=== PATIENT | female | born 1960 | race African-American/Black ===

== ENCOUNTER 2018-03-26 18:37 | Observation (INO) ==
[2018-03-26] MEDS ORDERED: 0.9 % Sodium Chloride 1,000 ML IVC ONE ×2 (18:53→23:08)
--- NOTE | 2018-03-26 19:21 | Emergency Department Note ---
Disposition Clinical Impression: Ductal carcinoma in situ of right breast, Hypertension, Hyperlipidemia, Diabetes mellitus type II, controlled, Tachycardia, Non-cardiac chest pain, Pleural effusion, Pericardial effusion Disposition: Admitted As Inpatient SOB HPI - General Chief Complaint: ED Shortness of Breath/Dyspnea Stated Complaint: VICTOR M Time Seen by Provider: 03/26/18 18:43 Source: patient Mode of arrival: ambulatory Nursing Notes Reviewed: Yes Vital Signs Reviewed: Yes - History of Present Illness 57-year-old female with past medical history of DCIS of right breast, hypertension, hyperlipidemia, Crohn's disease, GERD presents to emergency department for chest pain of approximately one week duration. She tells me this started off as mild pain under her right breast but over the past 2 days the pain has become sharp, more severe (8/10), and without radiation. She also has some chest heaviness and shortness of breath. She took 400 mg of ibuprofen that did not relieve the pain. She denies recent illnesses or fever/chills. She denies any significant trauma. Patient is currently undergoing radiation treatment for her DCIS of the right breast she had a lumpectomy in November and started radiation in February with her last treatment 3 days ago. Her radiation oncologist Dr. Carmona ordered a CTA earlier today that was negative for pulmonary embolism but showed small pleural effusion as well as a small pericardial effusion. - Related Data Home Medications Medication Instructions Recorded Confirmed Amlodipine Besylate 10 mg PO DAILY 12/03/17 03/26/18 Atorvastatin [Lipitor] 40 mg PO HS 12/03/17 03/26/18 Azathioprine [Imuran] 50 mg PO TID 12/03/17 03/26/18 Azelastine 0.1% Nasal [place] 1 % IN BID 12/03/17 03/26/18 [Astelin] Colestipol HCl [Colestid] 1 gm PO DAILY 12/03/17 03/26/18 Cyclosporine [Restasis] 1 each OP BID 12/03/17 03/26/18 Desloratadine [Clarinex] 5 mg PO DAILY 12/03/17 03/26/18 Escitalopram Oxalate 5 mg PO DAILY 12/03/17 03/26/18 Lisinopril [Zestril] 5 mg PO DAILY 12/03/17 03/26/18 Metformin HCl [Metformin HCl ER] 1,000 mg PO BID 12/03/17 03/26/18 Multivit-Min/Iron/Folic/Lutein 1 each PO DAILY 12/03/17 03/26/18 [Centrum Silver Women Tablet] [place]-3S/Dha/Epa/Fish Oil [Fish 1 each PO DAILY 12/03/17 03/26/18 Oil 1,200 mg Softgel] SitaGLIPtin [Januvia] 100 mg PO DAILY 12/03/17 03/26/18 Vit A/Vit C/Vit E/Zinc/Copper 1 each PO DAILY 12/03/17 03/26/18 [Preservision Areds Tablet] Multivits Min/Iron/FA/Herb#186 1 tab PO DAILY 12/17/17 03/26/18 [Hair, Skin and Nails Caplet] Omeprazole [PriLOSEC] 20 mg PO DAILY 03/26/18 03/26/18 Previous Rx's Medication Instructions Recorded Vitamin E (Dl,Tocopheryl Acet) 400 unit PO DAILY #30 cap 11/28/17 [Vitamin E] Allergies Allergy/AdvReac Type Severity Reaction Status Date / Time Amoxicillin Allergy Itching Verified 01/21/18 13:41 aspirin Allergy Itching Verified 01/21/18 13:41 Constitutional: Denies: fever, chills, weakness, weight change Eyes: Denies: eye pain, eye discharge, vision change ENT ED: Denies: ear pain, throat pain, dental pain, hearing loss, epistaxis, congestion, dysphagia Cardiovascular: Reports: chest pain. Denies: palpitations, edema, syncope Respiratory: Reports: dyspnea. Denies: cough, wheezes, hemoptysis, stridor, sputum production Gastrointestinal: Reports: diarrhea (Chronic due to Crohn's). Denies: abdominal pain, nausea, vomiting, constipation, hematemesis, melena, hematochezia Genitourinary: Denies: dysuria, frequency, hematuria, discharge Integumentary: Denies: rash, abrasion, lesions Neurological: Reports: headache (1-2/10 mild headache similar to prior headaches ). Denies: weakness, numbness, paresthesias, confusion, abnormal gait, vertigo Past Medical History - Past Medical History Psychiatric history: Reports: no psych history - Social History Smoking Status: Never smoker Smokeless Tobacco Status: No Alcohol use: Reports: none Drug use: Reports: none Physical Exam - General Limitations: no limitations General appearance: alert, in no apparent distress - Head Head exam: atraumatic, normocephalic, normal inspection - Eye Eye exam: Present: normal appearance, PERRL, EOMI - ENT ENT exam: normal exam, normal oropharynx, mucous membranes moist - Neck Neck exam: Present: normal inspection, full ROM, trachea midline - Chest Chest inspection: Present: normal inspection, symmetric chest wall rise, tenderness (Reproducible pain on palpation of right anterior chest) - Respiratory Respiratory exam: Present: normal lung sounds bilaterally - Cardiovascular Cardiovascular exam: Present: normal rhythm, tachycardia, normal heart sounds - Abdominal Exam Abdominal exam: Present: soft, Non-Tender. Absent: tenderness, distention, guarding, rebound, rigidity - Extremities Exam Extremities exam: Present: normal inspection. Absent: tenderness, pedal edema - Neurological Exam Neurological exam: Present: alert, oriented X3 Course Course Narrative: Patient was seen and evaluated at bedside. She is in no acute distress Vital Signs Temperature 98.9 F 03/26/18 18:38 Pulse Rate 138 03/26/18 18:38 Respiratory Rate 22 03/26/18 18:38 Blood Pressure 142/88 03/26/18 18:38 O2 Sat by Pulse Oximetry 96 03/26/18 18:38 Temperature 98.9 F 03/26/18 18:38 Pulse Rate 114 03/26/18 20:05 Respiratory Rate 22 03/26/18 20:05 Blood Pressure 157/87 03/26/18 20:05 O2 Sat by Pulse Oximetry 98 03/26/18 20:05 Oxygen Delivery Oxygen Delivery Room Air Shortness of Breath/Dyspnea - [facility] Narrative Medical decision making narrative: Patient's right-sided chest pain is reproducible and initial EKG showed no acute changes, however; given her tachycardia, shortness of breath, age, and current treatment for breast cancer we will obtain cardiac workup. Her radiation oncologist has already ordered CTA that was nonacute . Hemoglobin is normal. Dr. Augustin: I personally evaluated the patient and spent direct [id number] time with the patient and agree with the resident H&P findings assessment and plan. The patient has a history of breast cancer currently undergoing chemotherapy, she had an outpatient CT chest today which revealed what appeared to be pericardial fluid and pleural effusions with a potential inflammatory or infectious locus. No PE identified. The patient presents emergency department describing pleuritic chest pain associated with position. There is no evidence of acute ischemia on EKG troponin negative laboratory studies unremarkable apart from anemia. The patient remained tachycardic in the emergency department. Blood cultures are sent, lactic acid negative, IV fluid given. She declined need for pain medication. Antibiotic therapy initiated. Based on the patient's age, comorbidities including hypertension hyperlipidemia diabetes breast cancer and findings suggestive of potential pericarditis and or pneumonitis with pleural effusions and persistent tachycardia and chest pain, I thought it would be appropriate to admit the patient to the hospital for further evaluation. The patient is highly agreeable. I reviewed the case with the hospitalist on-call who has accepted the patient to their care. The patient is currently stable pending admission. - Lab Data Lab results reviewed: Yes I reviewed the patient's lab results. Result diagrams: 03/26/18 18:46 03/26/18 18:46 Lab Results 03/26/18 03/26/18 03/26/18 Range/Units 18:46 18:46 18:46 WBC 9.1 (4.3-11.1) K/mcL RBC 4.09 (3.82-4.97) M/mcL Hgb 11.2 L (11.5-15.4) g/dL Hct 34.1 L (35.3-44.9) % MCV 83.4 (83.0-100.0) fL MCH 27.4 L (28.0-33.3) pg MCHC 32.8 (31.6-35.5) g/dL RDW 14.1 (11.5-14.5) % Plt Count 255 (140-400) K/mcL MPV 11.0 (9.4-12.4) fL Immature Gran % 0.2 (0-4) % Seg Neutrophils % 79.1 % Lymphocytes % 9.3 % Monocytes % 10.3 % Eosinophils % 0.8 % Basophils % 0.3 % Neutrophils # 7.2 (1.6-8.9) K/mcL Lymphocytes # 0.8 (0.6-4.6) K/mcL Monocytes # 0.9 (0.0-1.3) K/mcL Eosinophils # 0.1 (0.0-0.6) K/mcL Basophils # 0.0 (0.0-0.2) K/mcL PT (9.4-12.1) Seconds INR APTT (26.0-36.0) Seconds Sodium 138 (136-145) mEq/L Potassium 4.1 (3.5-5.1) mEq/L Chloride 103 (98-107) mEq/L Carbon Dioxide 26 (23-29) mEq/L BUN 19 (6-20) mg/dL Creatinine 0.85 (0.60-1.20) mg/dL Est GFR ( Amer) > 60 (> 60) Est GFR (Non-Af Amer) > 60 (> 60) BUN/Creatinine Ratio 22 (6-26) Glucose 198 H (70-105) mg/dL Calculated Osmolality 294 (280-300) Lactic Acid (0.5-2.2) mmol/L Calcium 9.3 (8.6-10.3) mg/dL Total Bilirubin 0.6 (0.3-1.0) mg/dL Direct Bilirubin 0.3 H (0.0-0.2) mg/dL Indirect Bilirubin 0.3 (0.0-1.2) mg/dL AST 15 (13-39) Units/L ALT 12 (7-52) Units/L Alkaline Phosphatase 60 (34-104) Units/L Troponin I < 0.03 (< 0.04) ng/mL B-Natriuretic Peptide 26 (Less than 100) pg/mL Serum Total Protein 7.4 (6.4-8.9) g/dL Albumin 4.0 (3.5-5.7) g/dL Globulin 3.4 (2.4-3.5) g/dL Albumin/Globulin Ratio 1.2 (1.1-2.2) TSH 1.686 (0.340-5.600) mcIU/mL Free T4 1.08 (0.70-2.00) ng/dl 03/26/18 03/26/18 Range/Units 18:47 19:00 WBC (4.3-11.1) K/mcL RBC (3.82-4.97) M/mcL Hgb (11.5-15.4) g/dL Hct (35.3-44.9) % MCV (83.0-100.0) fL MCH (28.0-33.3) pg MCHC (31.6-35.5) g/dL RDW (11.5-14.5) % Plt Count (140-400) K/mcL MPV (9.4-12.4) fL Immature Gran % (0-4) % Seg Neutrophils % % Lymphocytes % % Monocytes % % Eosinophils % % Basophils % % Neutrophils # (1.6-8.9) K/mcL Lymphocytes # (0.6-4.6) K/mcL Monocytes # (0.0-1.3) K/mcL Eosinophils # (0.0-0.6) K/mcL Basophils # (0.0-0.2) K/mcL PT 10.7 (9.4-12.1) Seconds INR 1.0 APTT 31.6 (26.0-36.0) Seconds Sodium (136-145) mEq/L Potassium (3.5-5.1) mEq/L Chloride (98-107) mEq/L Carbon Dioxide (23-29) mEq/L BUN (6-20) mg/dL Creatinine (0.60-1.20) mg/dL Est GFR ( Amer) (> 60) Est GFR (Non-Af Amer) (> 60) BUN/Creatinine Ratio (6-26) Glucose (70-105) mg/dL Calculated Osmolality (280-300) Lactic Acid 1.9 (0.5-2.2) mmol/L Calcium (8.6-10.3) mg/dL Total Bilirubin (0.3-1.0) mg/dL Direct Bilirubin (0.0-0.2) mg/dL Indirect Bilirubin (0.0-1.2) mg/dL AST (13-39) Units/L ALT (7-52) Units/L Alkaline Phosphatase (34-104) Units/L Troponin I (< 0.04) ng/mL B-Natriuretic Peptide (Less than 100) pg/mL Serum Total Protein (6.4-8.9) g/dL Albumin (3.5-5.7) g/dL Globulin (2.4-3.5) g/dL Albumin/Globulin Ratio (1.1-2.2) TSH (0.340-5.600) mcIU/mL Free T4 (0.70-2.00) ng/dl - Radiology Data Radiology results reviewed: Yes I reviewed the patient's radiology results. - EKG Data EKG attestation: Yes I reviewed and interpreted this EKG. EKG results narrative: Sinus tachycardia. Ventricular rate 132 bpm, SD interval 140 ms, QRS duration 72 ms, QT 332 ms, QTC 410 ms, normal axes, no ST elevation or depression, no T- wave abnormalities
[2018-03-26 19:40] LABS: Basophils % 0.3 %; Eosinophils # 0.1 K/mcL (0.0-0.6); Eosinophils % 0.8 %; Hematocrit 34.1 % (35.3-44.9); Hemoglobin 11.2 g/dL (11.5-15.4); Immature Granulocytes % 0.2 % (0-4); Lymphocytes # 0.8 K/mcL (0.6-4.6); Lymphocytes % 9.3 %; Mean Corpuscular HGB Conc 32.8 g/dL (31.6-35.5); Mean Corpuscular Hemoglobin 27.4 pg (28.0-33.3); Mean Corpuscular Volume 83.4 fL (83.0-100.0); Monocytes # 0.9 K/mcL (0.0-1.3); Monocytes % 10.3 %; Neutrophils # 7.2 K/mcL (1.6-8.9); Platelet Count 255 K/mcL (140-400); Red Blood Count 4.09 M/mcL (3.82-4.97); Red Cell Distribution Width 14.1 % (11.5-14.5); Segmented Neutrophils % 79.1 %
[2018-03-26 19:41] LABS: Troponin I < 0.03 ng/mL (< 0.04)
[2018-03-26 19:46] LABS: Prothrombin Time 10.7 Seconds (9.4-12.1)
[2018-03-26 19:48] LABS: Activated Partial Thrombo Time 31.6 Seconds (26.0-36.0)
[2018-03-26 19:59] LABS: Alanine Aminotransferase 12 Units/L (7-52); Albumin/Globulin Ratio 1.2 (1.1-2.2); Alkaline Phosphatase 60 Units/L (34-104); Aspartate Amino Transferase 15 Units/L (13-39); BUN/Creatinine Ratio 22 (6-26); Bilirubin,Direct 0.3 mg/dL (0.0-0.2); Bilirubin,Indirect 0.3 mg/dL (0.0-1.2); Bilirubin,Total 0.6 mg/dL (0.3-1.0); Blood Urea Nitrogen 19 mg/dL (6-20); Calcium 9.3 mg/dL (8.6-10.3); Carbon Dioxide 26 mEq/L (23-29); Chloride 103 mEq/L (98-107); Globulin 3.4 g/dL (2.4-3.5); Glucose 198 mg/dL (70-105); Osmolality,Calculated 294 (280-300); Potassium 4.1 mEq/L (3.5-5.1); Sodium 138 mEq/L (136-145); Thyroid Stimulating Hormone 1.686 mcIU/mL (0.340-5.600); Total Protein 7.4 g/dL (6.4-8.9); eGFR For African Americans > 60 (> 60); eGFR For Non-African Americans > 60 (> 60)
[2018-03-26] MEDS ORDERED: Levofloxacin 750 MG/150 ML 750 MG/150 ML BAG IVPB ONE (20:21)
[2018-03-26] MEDS ORDERED: *HR* HYDROcodone/Acet 5/325 mg TABLET PO PRN (22:20)
[2018-03-26] MEDS ORDERED: Naloxone 0.4 MG/ML INJ IVP PRN (22:20)
[2018-03-26] MEDS ORDERED: Dextrose Gel 15 GM/37.5 ML TUBE PO PRN ×2 (22:42)
[2018-03-26] MEDS ORDERED: D5% in Water 1,000 ML IVC PRN (22:42)
[2018-03-26] MEDS ORDERED: *HR* Dextrose 50 % in Water (Syg) 50 ML SYRINGE IVP PRN (22:42)
[2018-03-26] MEDS ORDERED: Insulin DETEMIR 100 UNIT/ML X5UNITS SQ SCH (22:45)
--- NOTE | 2018-03-26 23:16 | Internal Med History&Physical ---
Date of Encounter: 03/26/18 Time of Encounter: 21:30 Internal Medicine - H&P: HPI Chief complaint: SOB, tachycardia Admitted From: Home Plans for Post Hospital Care: Home History of present illness: Ms. Houston is a 57 year old female Patient presented to the ER for shortness of breath for the past few days. She also has been having some chest pressure as well for the last week. She noted it getting worse and worse over the last couple days, particularly with exertion such as when she goes up and down the stairs while doing laundry at home. She never had symptoms like this before. The chest pressure is worse with inhalation. She denies nausea and vomiting, cough, abdominal pain and lower extremity edema. She has had decreased appetite and had a temperature at home of 100 degrees. 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 She has a history of right-sided ductal carcinoma in situ of the right breast, for which she is receiving radiation, her last radiation was 3 days ago. She only has 2 more treatments before she completes her regimen. Her oncologist ordered a CT Angio for her based on her symptoms worried for possible pulmonary embolism , CT angios showed no PE but did show small right pleural effusion, as well as focal right basilar opacity. Infectious or inflammatory process could not be ruled out. There is also trace pericardial effusion, but patient states she has known about this for over 20 years and this is not a new finding. In the emergency room patient received IV fluids and an EKG which showed sinus tachycardia with no T-wave abnormalities. Patient's troponins were negative 1. She was started on Levaquin prior to blood cultures being drawn for possible pneumonia. She will be admitted for management of her tachycardia and shortness of breath as well as her possible pneumonia. Currently she is feeling a little better. Past Med Surg Social Fam HX - Past Medical History Additional medical history: stomach problems. Crohns Dx. Anemia. right breast DCIS Grade 2. Colon Cancer Psychiatric history: no psych history - Social History Smoking Status: Never smoker Smokeless Tobacco Status: No Alcohol use: none Drug use: none Internal Medicine - H&P: Meds Vitamin E (Dl,Tocopheryl Acet) [Vitamin E] 400 unit PO DAILY #30 cap 11/28/17 [ Rx] Amlodipine Besylate 10 mg PO DAILY 12/03/17 [History] Atorvastatin [Lipitor] 40 mg PO HS 12/03/17 [History] Azathioprine [Imuran] 50 mg PO TID 12/03/17 [History] Azelastine 0.1% Nasal [place] [Astelin] 1 % IN BID 12/03/17 [History] Colestipol HCl [Colestid] 1 gm PO DAILY 12/03/17 [History] Cyclosporine [Restasis] 1 each OP BID 12/03/17 [History] Desloratadine [Clarinex] 5 mg PO DAILY 12/03/17 [History] Escitalopram Oxalate 5 mg PO DAILY 12/03/17 [History] Lisinopril [Zestril] 5 mg PO DAILY 12/03/17 [History] Metformin HCl [Metformin HCl ER] 1,000 mg PO BID 12/03/17 [History] Multivit-Min/Iron/Folic/Lutein [Centrum Silver Women Tablet] 1 each PO DAILY 03/17 [History] [place]-3S/Dha/Epa/Fish Oil [Fish Oil 1,200 mg Softgel] 1 each PO DAILY 12/03/17 [ History] SitaGLIPtin [Januvia] 100 mg PO DAILY 12/03/17 [History] Vit A/Vit C/Vit E/Zinc/Copper [Preservision Areds Tablet] 1 each PO DAILY [History] Multivits Min/Iron/FA/Herb#186 [Hair, Skin and Nails Caplet] 1 tab PO DAILY [History] Omeprazole [PriLOSEC] 20 mg PO DAILY 03/26/18 [History] 3 Allergy/AdvReac Type Severity Reaction Status Date / Time Amoxicillin Allergy Itching Verified 01/21/18 13:41 aspirin Allergy Itching Verified 01/21/18 13:41 All Systems PM: A 10-system review of systems was performed and is negative for pertinent findings except as documented above in the HPI. - Constitutional Vitals: Temp Pulse Resp BP Pulse Ox 99.0 F 118 20 144/83 98 03/26/18 21:40 03/26/18 21:40 03/26/18 21:40 03/26/18 21:40 03/26/18 21:40 General appearance: Present: A&O X 3, pleasant, no acute distress - Head Head exam: Present: normal inspection - Eye Eye exam: Present: EOMI, normal appearance - Respiratory Respiratory exam: Present: decreased breath sounds, CTAB. Absent: accessory muscle use, chest wall tenderness, rales, respiratory distress, rhonchi, wheezes - Cardiovascular Cardiovascular exam: Present: RRR, tachycardia. Absent: diastolic murmur, systolic murmur - GI/Abdominal GI/Abdominal exam: Present: normal bowel sounds. Absent: guarding, tenderness - Extremities Exam Extremities exam: Present: full ROM, normal inspection, warm, radial pulses palpable and symmetrical. Absent: calf tenderness, tenderness - Neurological Exam Neurological exam: Present: oriented X3, strengths equal and symetr throughout. Absent: facial droop, speech deficit - Skin Skin exam: Present: dry, normal color, warm Internal Med - H&P Results - Labs CBC & Chem 7: 03/26/18 18:46 03/26/18 18:46 - Assessment and plan (1) Dyspnea Current Visit: Yes Status: Acute Assessment and plan: Likely secondary to possible pneumonia as well as pleural effusion. Patient has never had symptoms like this before, and no history of CHF or COPD. CTA was negative for pulmonary embolism. Her radiation treatments could be causing the mild pleural effusion, and unfortunately blood cultures were not drawn prior to antibiotic application. Patient currently saturating at 98% on room air, chest pain is improving and shortness of breath is resolving. Continue to monitor Continue treatment for possible pneumonia Oxygen as needed Qualifiers: Qualified Code(s): R06.02 - Shortness of breath; R06.00 - Dyspnea, unspecified; R06.01 - Orthopnea (2) Tachycardia Current Visit: Yes Status: Acute Assessment and plan: Could be secondary to dehydration as patient has been working very hard at her congregational volunteering and has not been eating and drinking as much. Has been present for the last week or so. Troponins negative thus far and EKG showed no T-wave changes only sinus tachycardia. Patient got a dose of IV fluids in the ER. Continue to monitor Repeat IV fluid bolus If improvement of heart rate not seen with IV fluid application, will consider beta blockers like metoprolol to help control rate Consider cardiology consult if rate not controlled Continue to monitor troponins, thus far negative 1. (3) Lower lobe pneumonia Current Visit: Yes Status: Acute Assessment and plan: As evidenced by CTA and x-ray patient has lower lobe basilar opacities. Unfortunately blood cultures were not drawn in the emergency room prior to them giving antibiotics. Patient is afebrile does not meet sepsis criteria. Continue Levaquin Continue to monitor respiratory function. Qualifiers: Pneumonia type: due to unspecified organism Qualified Code(s): J18.1 - Lobar pneumonia, unspecified organism (4) Diabetes mellitus type II, controlled Current Visit: Yes Status: Acute Assessment and plan: Patient takes Januvia and metformin at home. Hold home meds. Monitor sugars before meals and at bedtime Start basal insulin tonight Low-dose insulin with meals Qualifiers: Qualified Code(s): E11.9 - Type 2 diabetes mellitus without complications (5) Ductal carcinoma in situ of right breast Current Visit: Yes Status: Acute Assessment and plan: Patient currently being treated with radiation therapy. Consider oncology consultation (6) Hyperlipidemia Current Visit: Yes Status: Acute Assessment and plan: Chronic continue home meds Qualifiers: Qualified Code(s): E78.5 - Hyperlipidemia, unspecified (7) Hypertension Current Visit: Yes Status: Acute Assessment and plan: Chronic continue home medication Qualifiers: Qualified Code(s): I10 - Essential (primary) hypertension (8) Non-cardiac chest pain Current Visit: Yes Status: Acute Assessment and plan: Likely secondary to possible pneumonia and pleural effusions. Troponins negative 1 thus far. Continue to trend troponins Repeat EKG for study chest pain (9) Pericardial effusion Current Visit: Yes Status: Acute Assessment and plan: Patient states that she has had this for many years as it has been seen on prior imaging as long as [address] angio showed trace heart pericardial effusion Continue to monitor (10) Pleural effusion Current Visit: Yes Status: Acute Assessment and plan: Could be due to radiation therapy, or possible pneumonia. Continue to monitor respiratory status (11) Crohns disease Current Visit: No Status: Acute Assessment and plan: Chronic continue home meds Qualifiers: Qualified Code(s): K50.90 - Crohn's disease, unspecified, without complications (12) GERD (gastroesophageal reflux disease) Current Visit: No Status: Acute Assessment and plan: Chronic continue home meds Qualifiers: Qualified Code(s): K21.9 - Gastro-esophageal reflux disease without esophagitis (13) DVT prophylaxis Current Visit: Yes Status: Acute Assessment and plan: Heparin - Time Spent With Patient Total time spent is greater than 50% in coordination of care (as documented) at patient's floor/unit and/or counseling patient: Greater than 35 minutes
[2018-03-27 01:16] LABS: Hematocrit 29.3 % (35.3-44.9); Mean Corpuscular HGB Conc 32.4 g/dL (31.6-35.5); Mean Corpuscular Hemoglobin 27.1 pg (28.0-33.3); Mean Corpuscular Volume 83.5 fL (83.0-100.0); Mean Platelet Volume 11.3 fL (9.4-12.4); Platelet Count 197 K/mcL (140-400); Red Blood Count 3.51 M/mcL (3.82-4.97); Red Cell Distribution Width 14.1 % (11.5-14.5)
[2018-03-27 01:20] LABS: Hemoglobin 9.5 g/dL (11.5-15.4)
[2018-03-27 01:36] LABS: BUN/Creatinine Ratio 19 (6-26); Blood Urea Nitrogen 14 mg/dL (6-20); Calcium 8.7 mg/dL (8.6-10.3); Carbon Dioxide 25 mEq/L (23-29); Chloride 108 mEq/L (98-107); Glucose 134 mg/dL (70-105); Osmolality,Calculated 292 (280-300); Potassium 4.1 mEq/L (3.5-5.1); Sodium 140 mEq/L (136-145); eGFR For African Americans > 60 (> 60); eGFR For Non-African Americans > 60 (> 60)
[2018-03-27] MEDS ORDERED: *HR* Heparin 5,000 UNIT/ML VIAL SQ SCH (06:00)
[2018-03-27] MEDS: Insulin LISPRO 300 UNITS/3 ML VIAL SQ SCH ×2 (09:01→13:35)
[2018-03-27] MEDS ORDERED: Loratadine 10 MG TABLET PO SCH (10:00)
[2018-03-27] MEDS ORDERED: amLODIPine 5 MG TABLET PO SCH (10:00)
--- NOTE | 2018-03-27 10:51 | Internal Med Progress Note ---
Date of Encounter: 03/27/18 Time of Encounter: 08:30 - Time Spent With Patient Total time spent is greater than 50% in coordination of care (as documented) at patient's floor/unit and/or counseling patient: - Subjective Interval history: Patient seen and examined lying in bed. No acute distress. Patient notes she had worsening shortness of breath and chest heaviness before presenting to the ED. She states yesterday she was working harder to breathing while talking, but today she does not find it takes extra effort to converse. Patient notes overall her dyspnea and chest pain have improved, though not completely resolved. Notes mild central chest tightness. Denies nausea or vomiting. Patient was on day for radiation prior to admission. Troponins were trended and remained negative. Patient continues on IV antibiotics for pneumonia vs effusion. - Constitutional Vitals: Temp Pulse Resp BP Pulse Ox 97.9 F 105 18 134/80 98 03/27/18 07:00 03/27/18 07:00 03/27/18 07:00 03/27/18 07:00 03/27/18 07:00 General appearance: Present: cooperative, A&O X 3, pleasant, no acute distress, answers questions appropriately - Head Head exam: Present: atraumatic, normal inspection, normocephalic - Eye Eye exam: Present: EOMI, normal appearance, conjuntiva pink, sclera anicteric - ENT ENT exam: Present: mucous membranes moist - Neck Neck exam general surgery: Present: full ROM, normal inspection, supple - Respiratory Respiratory exam: Present: CTAB. Absent: respiratory distress, rhonchi, stridor , wheezes - Cardiovascular Cardiovascular exam: Present: +S1, +S2, tachycardia. Absent: diastolic murmur, systolic murmur - GI/Abdominal GI/Abdominal exam: Present: normal bowel sounds, soft. Absent: distended, firm , guarding, tenderness - Extremities Exam Extremities exam: Present: warm, radial pulses palpable and symmetrical. Absent : pedal edema, tenderness - Neurological Exam Neurological exam: Present: alert, oriented X3, no focal deficits. Absent: speech deficit - Psychiatric Psychiatric exam: Present: normal affect, normal mood - Skin Skin exam: Present: intact, normal color, warm. Absent: rash Internal Medicine: Result - Labs CBC & Chem 7: 03/27/18 00:49 03/27/18 00:49 Labs: Short CBC 03/27/18 Range/Units 00:49 WBC 7.2 (4.3-11.1) K/mcL Hgb 9.5 L D (11.5-15.4) g/dL Hct 29.3 L (35.3-44.9) % Plt Count 197 (140-400) K/mcL BMP 03/27/18 00:49 Sodium 140 Potassium 4.1 Chloride 108 H Carbon Dioxide 25 BUN 14 Creatinine 0.75 Glucose 134 H Calcium 8.7 Cardiac Enzymes 03/27/18 03/27/18 Range/Units 00:49 06:12 Troponin I < 0.03 < 0.03 (< 0.04) ng/mL - ABG Interpretation ABG results: PT/INR, D-dimer PT 10.7 Seconds (9.4-12.1) 03/26/18 18:47 Consult Discharge Plan - Plan Referrals: Johny Elizalde MD [Primary Care Provider] -
[2018-03-27 11:22] VITALS: BP 138/87
--- NOTE | 2018-03-27 15:17 | Discharge Summary ---
<Faisal Cleary - Last Filed: 03/27/18 15:37> - NOTES TO OUTPATIENT PROVIDER Notes to Outpatient Provider: Holding Azathioprine while treating for pneumonia. Discharging on Levaquin to complete 7 day course. Repeat CXR in 4 weeks. Recommend patient touch base with oncology, likely need to complete radiation therapy after pneumonia resolved. Date of Encounter: 03/27/18 Time of Encounter: 08:30 - Discharge Diagnosis (1) Dyspnea Priority: Secondary Status: Acute Qualifiers: Dyspnea type: dyspnea on exertion Qualified Code(s): R06.09 - Other forms of dyspnea (2) Pleural effusion Priority: Secondary Status: Acute (3) Ductal carcinoma in situ of right breast Priority: Secondary Status: Acute (4) Crohns disease Priority: Secondary Status: Acute Qualifiers: Gastrointestinal tract location: unspecified location Digestive disease complication type: without complication Qualified Code(s): K50.90 - Crohn's disease, unspecified, without complications (5) Hypertension Priority: Secondary Status: Acute Qualifiers: Hypertension type: essential hypertension Qualified Code(s): I10 - Essential (primary) hypertension (6) Diabetes mellitus type II, controlled Priority: Secondary Status: Acute Qualifiers: Diabetes mellitus laborer marine terminal insulin use: without laborer marine terminal use Diabetes mellitus complication status: without complication Qualified Code(s): E11.9 - Type 2 diabetes mellitus without complications (7) Tachycardia Priority: Secondary Status: Acute (8) Non-cardiac chest pain Priority: Secondary Status: Acute (9) Hyperlipidemia Priority: Secondary Status: Acute Qualifiers: Hyperlipidemia type: unspecified Qualified Code(s): E78.5 - Hyperlipidemia , unspecified (10) Lower lobe pneumonia Priority: Primary Status: Acute Qualifiers: Pneumonia type: due to unspecified organism Laterality: right Qualified Code(s): J18.1 - Lobar pneumonia, unspecified organism Hospital course: Ms. Houston is a 57 year old female that presented to the ER for worsening shortness of breath x 1 week and chest heaviness/pressure. Worsening with exertion such as when she goes up and down the stairs while doing laundry at home. She never had symptoms like this before. The chest pressure is worse with inhalation. She denied nausea and vomiting, cough, abdominal pain and lower extremity edema. Notes a temperature at home of 100*F. She has also been noticing increased heart rate for the past week as well. Patient is currently undergoing radiation treatment for her DCIS of the right breast she had a lumpectomy in November and started radiation in February with her last treatment 3 days ago. Her radiation oncologist Dr. Carmona ordered a CTA earlier on the day of admission that was negative for pulmonary embolism but showed small pleural effusion, small pericardial effusion, as well as focal right basilar opacity. Infectious or inflammatory process could not be ruled out. In the emergency room patient received IV fluids and an EKG which showed sinus tachycardia with no T-wave abnormalities. Patient's troponins were negative 3. She was started on Levaquin for possible pneumonia. Today she notes significant improvement of chest pain and dyspnea, however notes mild chest tightness. Maintaining good saturation of room air. Vitals normal other than tachycardia. Exam today is unremarkable. Patient states she is comfortable with discharge home today to finish antibiotic course; plan to complete 7 day course of Levaquin. With history of breast cancer and concern for opacity on chest CT and CXR, recommend repeat CXR in 4 weeks. Currently holding your Crohn's medication, Azathioprine, while being treated for pneumonia. Plan for patient to call oncology to inform them of your recent admission to the hospital and diagnosis of pulmonary effusion and possible pneumonia as they may wish to hold radiation therapy until your symptoms have resolved. Discharge discussed with: patient, family, nurse - Time Spent with Patient Total time spent providing and/or coordinating discharge services: Greater than 30 minutes (45mins) - Discharge Medications Prescriptions: levoFLOXacin [Levaquin] 750 mg PO DAILY #6 tablet Home Medications: Vitamin E (Dl,Tocopheryl Acet) [Vitamin E] 400 unit PO DAILY #30 cap 11/28/17 [ Rx] Amlodipine Besylate 10 mg PO DAILY 12/03/17 [History] Atorvastatin [Lipitor] 40 mg PO HS 12/03/17 [History] Azelastine 0.1% Nasal [place] [Astelin] 1 % IN BID 12/03/17 [History] Colestipol HCl [Colestid] 1 gm PO DAILY 12/03/17 [History] Cyclosporine [Restasis] 1 each OP BID 12/03/17 [History] Desloratadine [Clarinex] 5 mg PO DAILY 12/03/17 [History] Escitalopram Oxalate 5 mg PO DAILY 12/03/17 [History] Lisinopril [Zestril] 5 mg PO DAILY 12/03/17 [History] Metformin HCl [Metformin HCl ER] 1,000 mg PO BID 12/03/17 [History] Multivit-Min/Iron/Folic/Lutein [Centrum Silver Women Tablet] 1 each PO DAILY 03/17 [History] [place]-3S/Dha/Epa/Fish Oil [Fish Oil 1,200 mg Softgel] 1 each PO DAILY 12/03/17 [ History] SitaGLIPtin [Januvia] 100 mg PO DAILY 12/03/17 [History] Vit A/Vit C/Vit E/Zinc/Copper [Preservision Areds Tablet] 1 each PO DAILY [History] Multivits Min/Iron/FA/Herb#186 [Hair, Skin and Nails Caplet] 1 tab PO DAILY [History] Omeprazole [PriLOSEC] 20 mg PO DAILY 03/26/18 [History] levoFLOXacin [Levaquin] 750 mg PO DAILY #6 tablet 03/27/18 [Rx] Allergies/Adverse Reactions: 3 Allergy/AdvReac Type Severity Reaction Status Date / Time Amoxicillin Allergy Itching Verified 01/21/18 13:41 aspirin Allergy Itching Verified 01/21/18 13:41 Date of admission: 03/26/18 20:46 Primary care physician: Johny Elizalde MD Consults: 03/27/18 11:28 Consult to Nurse Navigator [CONS] Routine Comment: Pneumonia Discharging clinician: Kj Browne Anticipated date of discharge: 03/27/18 - Constitutional Vitals: Temp Pulse Resp BP Pulse Ox 97.9 F 110 19 138/87 100 03/27/18 07:00 03/27/18 11:18 03/27/18 11:18 03/27/18 11:18 03/27/18 11:18 General appearance: Present: cooperative, A&O X 3, pleasant, no acute distress, answers questions appropriately - Head Head exam: Present: atraumatic, normal inspection, normocephalic - Eye Eye exam: Present: EOMI, normal appearance, conjuntiva pink, sclera anicteric - ENT ENT exam: Present: mucous membranes moist - Neck Neck exam general surgery: Present: full ROM, normal inspection, supple - Respiratory Respiratory exam: Present: CTAB. Absent: accessory muscle use, respiratory distress, rhonchi, stridor, wheezes - Cardiovascular Cardiovascular exam: Present: +S1, +S2, tachycardia. Absent: diastolic murmur, gallop, rubs, systolic murmur - GI/Abdominal GI/Abdominal exam: Present: normal bowel sounds, soft. Absent: distended, firm , guarding, tenderness - Extremities Exam Extremities exam: Present: normal inspection, warm, radial pulses palpable and symmetrical. Absent: calf tenderness, pedal edema, tenderness - Neurological Exam Neurological exam: Present: alert, oriented X3, no focal deficits. Absent: speech deficit - Psychiatric Psychiatric exam: Present: normal affect, normal mood - Skin Skin exam: Present: dry, intact, normal color, warm. Absent: cyanosis, rash - Patient Status Disposition: Home, Self-Care Condition: Good Functional capacity at discharge: independent ambulation Overall status at discharge: patient is progressing back to baseline - Ambulatory Orders Ambulatory Orders: XR chest 2V [XR] Time Frame: 4 Weeks, Facility: [facility], Location: Radiology - Discharge Instructions Instructions: Chest Pain (DC), Bacterial Pneumonia (DC) Follow Up With: Johny Elizalde MD [Primary Care Provider] - 04/07/18 10:15 am Additional Instructions: Please complete your antibiotic, Levaquin. Please complete your repeat CXR in 4 week to ensure your previous findings on imaging resolve. Recommend follow up with Primary Care Provider (PCP) within the next 5-7 or sooner if new symptoms develop or symptoms worsen such as chest pain, shortness of breath, swelling, confusion, dizziness. Currently holding your Crohn's medication, Azathioprine, while you are being treated for pneumonia. Ensure your let your PCP know of this. Continue to use your inspiratory spirometer to help open your lungs fully and reduce risk for infection. Please call oncology tomorrow to inform them of your recent admission to the hospital and diagnosis of pulmonary effusion and possible pneumonia. They may wish to hold your radiation therapy until your symptoms have resolved completely. - Diet and Activity Activity: resume usual activities as tolerated Diet: advance to your usual diet <Kj Browne - Last Filed: 03/27/18 16:00> Date of Encounter: 03/27/18 - Discharge Diagnosis (1) Ductal carcinoma in situ of right breast Status: Acute (2) Crohns disease Status: Acute Qualifiers: Gastrointestinal tract location: unspecified location Digestive disease complication type: without complication Qualified Code(s): K50.90 - Crohn's disease, unspecified, without complications (3) Hyperlipidemia Status: Acute Qualifiers: Hyperlipidemia type: unspecified Qualified Code(s): E78.5 - Hyperlipidemia , unspecified (4) Hypertension Status: Acute Qualifiers: Hypertension type: essential hypertension Qualified Code(s): I10 - Essential (primary) hypertension (5) Diabetes mellitus type II, controlled Status: Acute Qualifiers: Diabetes mellitus prison insulin use: without prison use Diabetes mellitus complication status: without complication Qualified Code(s): E11.9 - Type 2 diabetes mellitus without complications (6) Tachycardia Status: Acute (7) Non-cardiac chest pain Status: Acute (8) Pleural effusion Status: Acute (9) Dyspnea Status: Acute Qualifiers: Dyspnea type: dyspnea on exertion Qualified Code(s): R06.09 - Other forms of dyspnea (10) Lower lobe pneumonia Status: Acute Qualifiers: Pneumonia type: due to unspecified organism Laterality: right Qualified Code(s): J18.1 - Lobar pneumonia, unspecified organism Hospital course: Ms. Houston is a 57 year old female - Time Spent with Patient Total time spent providing and/or coordinating discharge services: Date of admission: 03/26/18 20:46 Primary care physician: Johny Elizalde MD Consults: 03/27/18 11:28 Consult to Nurse Navigator [CONS] Routine Comment: Pneumonia - Constitutional Vitals: Temp Pulse Resp BP Pulse Ox 97.9 F 110 19 138/87 100 03/27/18 07:00 03/27/18 11:18 03/27/18 11:18 03/27/18 11:18 03/27/18 11:18 - Attending Attestation I performed an independent interview and examine of this patient. I agree with the findings, assessment, and plan of Dr. Cleary, internal medicine resident. Patient will continue to hold her immunotherapy for Crohn's disease given suspected pneumonia. She will continue with a total of 7 days of Levaquin. She will need a follow-up chest x-ray in 4 weeks to ensure resolution of her infiltrate, and also ensure pleural effusion does not increase. Cannot rule out radiation pneumonitis. Patient will follow-up with her oncologist. Patient is doing very well and stable for discharge.
--- NOTE | 2018-03-27 16:42 | Electrocardiograph Report ---
[address] [place] [address] Test Date: 2018-03-26 Pat Name: Yolanda Houston Department: 104 Room: 2NE28 Gender: F Dinkey Locomotive Operator: JAY : 1960 Requested By: Juan Augustin Order Number: [id number] Reading MD: Nasrin Nicholas Measurements Intervals [place] Rate: 132 P: 66 GA: 148 QRS: 30 QRSD: 72 T: 30 QT: 332 QTc: 410 Interpretive Statements SINUS TACHYCARDIA MODERATE T-WAVE ABNORMALITY, CONSIDER LATERAL ISCHEMIA Electronically Signed On 03-27-2018 16:41:05 EDT by Nasrin Nicholas
[2018-03-27] MEDS ORDERED: Levofloxacin 750 MG/150 ML 750 MG/150 ML BAG IVPB SCH (21:00)
== END 2018-03-27 17:51 | disposition home or self-care (01) ==
LOC: 2NENU 18:37 → EMEROO 18:37 → 2NENU 21:27
PROVIDERS: ADMIT Internal Medicine; ATTEND Internal Medicine